=== PATIENT | male | born 1965 | race Caucasian/White ===

== ENCOUNTER 2021-12-11 20:52 | Emergency (ER) | payer MEDICAID ==
[~2021-12-11] VITALS: Ht 185.4 cm; Wt 79.5 kg
[2021-12-11 20:57] VITALS: TEMP 98.3
[2021-12-11 21:25] VITALS: BP 119/80; PULSE 95
== END 2021-12-11 21:25 | disposition home or self-care (01) ==
LOC: COL.ER 20:52
DX: R22.42 Localized swelling, mass and lump, left lower limb (principal)
CPT/HCPCS: J1650